=== PATIENT | male | born 1965 | race African-American/Black ===

== ENCOUNTER 2020-04-27 17:00 | Inpatient (IN) | payer BC ==
[2020-04-27 17:38] VITALS: BMI 25.8
[2020-04-27 18:31] LABS: BASO % 0.8 % (0-2.0); EOS % 1.3 % (0-4.5); HEMATOCRIT 21.7 % (35.4-49); HEMOGLOBIN 7.2 GM/dL (11.7-16.9); LYMPH % 23.2 % (8-40); MCH 27.9 pg (25.7-33.7); MCHC 33.2 g/dl (32.0-35.9); MEAN PLT VOLUME 8.7 fl (7.5-11.1); NEUT % 63.7 % (42.8-82.8); PLATELET COUNT 228 K/MM3 (134-434); RBC 2.59 M/mm3 (4.00-5.60); RDW 13.1 % (11.9-15.9); WHITE BLOOD COUNT 6.4 K/mm3 (4.0-10.0)
[2020-04-27 18:35] LABS: INR 1.04 (0.83-1.09); PROTHROMBIN TIME (PATIENT) 12.8 SEC (9.7-13.0)
[2020-04-27 18:38] LABS: ACTIVATED PTT 24.8 SECONDS (25.2-36.5)
[2020-04-27] MEDS ORDERED: DOCUSATE SODIUM 100 MG CAPSULE (FP) PO ONE ×2 (18:39→18:44)
[2020-04-27 18:53] LABS: POTASSIUM 5.3 mmol/L (3.5-5.1)
[2020-04-27 18:55] LABS: CALCIUM 8.1 mg/dL (8.5-10.1)
[2020-04-27 18:56] LABS: ALBUMIN 2.9 g/dl (3.4-5.0); BLOOD UREA NITROGEN 61.9 mg/dL (7-18)
[2020-04-27 18:59] LABS: PHOSPHOROUS 5.3 mg/dL (2.5-4.9)
[2020-04-27 19:00] LABS: BILIRUBIN,TOTAL 0.2 mg/dL (0.2-1); TOT PROT 6.5 g/dl (6.4-8.2)
[2020-04-27 19:19] LABS: CREATININE 9.6 mg/dL (0.55-1.3)
[2020-04-28] MEDS: SEVELAMER CARBONATE 800 MG TAB (FP) PO SCH ×4 (00:53→18:03)
[2020-04-28] MEDS ORDERED: HEPARIN NA (PORCINE) 5,000 UNITS/ML 1ML VIAL ONE (07:18)
[2020-04-28] MEDS ORDERED: SODIUM CHLORIDE 250 ML IV PRN (07:20)
[2020-04-28] MEDS: HEPARIN NA (PORCINE) 5,000 UNITS/ML 1ML VIAL SQ SCH ×3 (07:20→22:22)
[2020-04-28] MEDS ORDERED: IRON SUCROSE INJECTION 100 MG in SODIUM CHLORIDE 95 ML IVPB ONE (08:00)
[2020-04-28] MEDS ORDERED: EPOETIN ALFA 20,000 UNIT/1 ML VIAL SQ ONE (08:00)
[2020-04-28 08:53] LABS: HEMATOCRIT 20.4 % (35.4-49); MCH 28.5 pg (25.7-33.7); MCHC 34.3 g/dl (32.0-35.9); MEAN CELL VOLUME 83.2 fl (80-96); MEAN PLT VOLUME 9.6 fl (7.5-11.1); PLATELET COUNT 221 K/MM3 (134-434); RBC 2.45 M/mm3 (4.00-5.60); RDW 13.1 % (11.9-15.9)
[2020-04-28 09:02] LABS: INR 1.02 (0.83-1.09); PROTHROMBIN TIME (PATIENT) 12.3 SEC (9.7-13.0)
[2020-04-28 09:05] LABS: ACTIVATED PTT 30.5 SECONDS (25.2-36.5)
[2020-04-28 09:10] LABS: POTASSIUM 4.7 mmol/L (3.5-5.1)
[2020-04-28 09:12] LABS: BLOOD UREA NITROGEN 72.8 mg/dL (7-18); CALCIUM 7.9 mg/dL (8.5-10.1)
[2020-04-28 09:15] LABS: PHOSPHOROUS 5.4 mg/dL (2.5-4.9)
[2020-04-28] MEDS: CARVEDILOL 25 MG TABLET (FP) PO SCH ×2 (12:52→22:22)
[2020-04-28] MEDS: LISINOPRIL 5 MG TABLET PO SCH (14:22)
[2020-04-28] MEDS: INSULIN SLIDING SCALE (NOVOLOG) 1 VIAL SQ SCH (22:34)
[2020-04-29] MEDS: HEPARIN NA (PORCINE) 5,000 UNITS/ML 1ML VIAL SQ SCH ×3 (06:07→21:55)
[2020-04-29] MEDS: INSULIN SLIDING SCALE (NOVOLOG) 1 VIAL SQ SCH ×4 (07:25→21:56)
[2020-04-29] MEDS: SEVELAMER CARBONATE 800 MG TAB (FP) PO SCH ×3 (08:32→17:20)
[2020-04-29 08:55] LABS: BASO % 0.6 % (0-2.0); EOS % 1.3 % (0-4.5); LYMPH % 32.4 % (8-40); MCH 27.5 pg (25.7-33.7); MCHC 32.4 g/dl (32.0-35.9); MEAN CELL VOLUME 84.6 fl (80-96); MEAN PLT VOLUME 9.3 fl (7.5-11.1); MONO % 13.8 % (3.8-10.2); NEUT % 51.9 % (42.8-82.8); PLATELET COUNT 237 K/MM3 (134-434); RBC 2.48 M/mm3 (4.00-5.60); RDW 13.3 % (11.9-15.9); WHITE BLOOD COUNT 6.4 K/mm3 (4.0-10.0)
[2020-04-29 09:09] LABS: HEMOGLOBIN 6.8 GM/dL (11.7-16.9)
[2020-04-29 09:41] LABS: PHOSPHOROUS 4.3 mg/dL (2.5-4.9)
[2020-04-29 09:42] LABS: BILIRUBIN,TOTAL 0.4 mg/dL (0.2-1); TOT PROT 5.9 g/dl (6.4-8.2)
[2020-04-29 09:44] LABS: ALBUMIN 2.7 g/dl (3.4-5.0)
[2020-04-29 09:50] LABS: CALCIUM 8.3 mg/dL (8.5-10.1)
[2020-04-29 09:54] LABS: BLOOD UREA NITROGEN 41.1 mg/dL (7-18)
[2020-04-29] MEDS: FUROSEMIDE 40 MG TABLET (FP) PO SCH (11:08)
[2020-04-29] MEDS: CARVEDILOL 25 MG TABLET (FP) PO SCH ×2 (11:08→21:55)
[2020-04-29] MEDS: LISINOPRIL 5 MG TABLET PO SCH (13:38)
[2020-04-29 23:48] LABS: BASO % 0.7 % (0-2.0); EOS % 1.2 % (0-4.5); HEMATOCRIT 24.3 % (35.4-49); HEMOGLOBIN 8.1 GM/dL (11.7-16.9); LYMPH % 32.3 % (8-40); MCH 28.4 pg (25.7-33.7); MCHC 33.3 g/dl (32.0-35.9); MEAN CELL VOLUME 85.2 fl (80-96); MEAN PLT VOLUME 9.6 fl (7.5-11.1); MONO % 11.4 % (3.8-10.2); NEUT % 54.4 % (42.8-82.8); PLATELET COUNT 215 K/MM3 (134-434); RBC 2.85 M/mm3 (4.00-5.60); RDW 13.3 % (11.9-15.9); WHITE BLOOD COUNT 7.9 K/mm3 (4.0-10.0)
[2020-04-30] MEDS: HEPARIN NA (PORCINE) 5,000 UNITS/ML 1ML VIAL SQ SCH ×3 (06:04→21:31)
[2020-04-30] MEDS: INSULIN SLIDING SCALE (NOVOLOG) 1 VIAL SQ SCH ×4 (06:52→21:29)
[2020-04-30 09:24] LABS: BASO % 0.4 % (0-2.0); EOS % 1.2 % (0-4.5); HEMATOCRIT 25.1 % (35.4-49); HEMOGLOBIN 8.3 GM/dL (11.7-16.9); LYMPH % 26.3 % (8-40); MCH 27.8 pg (25.7-33.7); MEAN CELL VOLUME 84.3 fl (80-96); MEAN PLT VOLUME 9.4 fl (7.5-11.1); MONO % 11.6 % (3.8-10.2); NEUT % 60.5 % (42.8-82.8); PLATELET COUNT 228 K/MM3 (134-434); RBC 2.97 M/mm3 (4.00-5.60); RDW 13.3 % (11.9-15.9); WHITE BLOOD COUNT 8.7 K/mm3 (4.0-10.0)
[2020-04-30 09:47] LABS: POTASSIUM 5.6 mmol/L (3.5-5.1)
[2020-04-30] MEDS: SEVELAMER CARBONATE 800 MG TAB (FP) PO SCH ×3 (09:55→18:08)
[2020-04-30 09:56] LABS: ALBUMIN 2.8 g/dl (3.4-5.0); CALCIUM 8.5 mg/dL (8.5-10.1)
[2020-04-30 09:57] LABS: BLOOD UREA NITROGEN 58.5 mg/dL (7-18)
[2020-04-30 10:00] LABS: BILIRUBIN,TOTAL 0.5 mg/dL (0.2-1); PHOSPHOROUS 4.7 mg/dL (2.5-4.9)
[2020-04-30 10:01] LABS: TOT PROT 6.1 g/dl (6.4-8.2)
[2020-04-30 10:07] LABS: CREATININE 8.2 mg/dL (0.55-1.3)
[2020-04-30] MEDS ORDERED: SODIUM CHLORIDE 250 ML IV PRN (12:32)
[2020-04-30] MEDS ORDERED: EPOETIN ALFA 20,000 UNIT/1 ML VIAL SQ ONE (13:00)
[2020-04-30] MEDS ORDERED: IRON SUCROSE INJECTION 100 MG in SODIUM CHLORIDE 95 ML IVPB ONE (13:00)
[2020-04-30] MEDS: CARVEDILOL 25 MG TABLET (FP) PO SCH ×2 (15:10→21:31)
[2020-04-30] MEDS: LISINOPRIL 5 MG TABLET PO SCH (15:10)
[2020-04-30] MEDS: FUROSEMIDE 40 MG TABLET (FP) PO SCH (15:10)
[2020-05-01] MEDS: HEPARIN NA (PORCINE) 5,000 UNITS/ML 1ML VIAL SQ SCH ×3 (06:25→21:08)
[2020-05-01] MEDS: INSULIN SLIDING SCALE (NOVOLOG) 1 VIAL SQ SCH ×4 (06:25→21:08)
[2020-05-01 08:38] LABS: BASO % 0.4 % (0-2.0); EOS % 0.4 % (0-4.5); HEMATOCRIT 28.8 % (35.4-49); HEMOGLOBIN 9.3 GM/dL (11.7-16.9); LYMPH % 23.4 % (8-40); MCH 27.6 pg (25.7-33.7); MCHC 32.3 g/dl (32.0-35.9); MEAN CELL VOLUME 85.7 fl (80-96); MEAN PLT VOLUME 9.3 fl (7.5-11.1); MONO % 12.3 % (3.8-10.2); NEUT % 63.5 % (42.8-82.8); PLATELET COUNT 268 K/MM3 (134-434); RBC 3.36 M/mm3 (4.00-5.60); RDW 13.5 % (11.9-15.9); WHITE BLOOD COUNT 9.3 K/mm3 (4.0-10.0)
[2020-05-01 08:56] LABS: POTASSIUM 4.9 mmol/L (3.5-5.1)
[2020-05-01 09:03] LABS: ALBUMIN 2.9 g/dl (3.4-5.0); CALCIUM 8.5 mg/dL (8.5-10.1)
[2020-05-01 09:06] LABS: PHOSPHOROUS 4.2 mg/dL (2.5-4.9)
[2020-05-01 09:07] LABS: MAGNESIUM 1.8 mg/dL (1.8-2.4)
[2020-05-01 09:08] LABS: TOT PROT 6.6 g/dl (6.4-8.2)
[2020-05-01 09:17] LABS: BILIRUBIN,TOTAL 0.4 mg/dL (0.2-1)
[2020-05-01 09:18] LABS: BLOOD UREA NITROGEN 31.3 mg/dL (7-18)
[2020-05-01] MEDS: SEVELAMER CARBONATE 800 MG TAB (FP) PO SCH ×3 (10:00→17:10)
[2020-05-01] MEDS: LISINOPRIL 5 MG TABLET PO SCH (10:34)
[2020-05-01] MEDS: CARVEDILOL 25 MG TABLET (FP) PO SCH ×2 (10:35→21:08)
[2020-05-01] MEDS: FUROSEMIDE 40 MG TABLET (FP) PO SCH (10:35)
[2020-05-01] MEDS ORDERED: MAGNESIUM SULF 50% (8.12 MEQ/2 ML-1 GM VIAL) IVPB ONE (16:30)
[2020-05-01] MEDS ORDERED: MAGNESIUM SULF 50% (8.12 MEQ/2 ML-1 GM VIAL) ONE (17:37)
[2020-05-02] MEDS: INSULIN SLIDING SCALE (NOVOLOG) 1 VIAL SQ SCH ×3 (06:29→18:19)
[2020-05-02] MEDS: HEPARIN NA (PORCINE) 5,000 UNITS/ML 1ML VIAL SQ SCH ×2 (06:29→13:20)
[2020-05-02] MEDS: SEVELAMER CARBONATE 800 MG TAB (FP) PO SCH ×3 (07:58→18:19)
[2020-05-02 09:23] LABS: BASO % 0.5 % (0-2.0); HEMATOCRIT 28.3 % (35.4-49); HEMOGLOBIN 9.2 GM/dL (11.7-16.9); LYMPH % 26.1 % (8-40); MCHC 32.5 g/dl (32.0-35.9); MEAN PLT VOLUME 9.3 fl (7.5-11.1); MONO % 12.7 % (3.8-10.2); NEUT % 59.7 % (42.8-82.8); PLATELET COUNT 295 K/MM3 (134-434); RBC 3.28 M/mm3 (4.00-5.60); RDW 13.3 % (11.9-15.9); WHITE BLOOD COUNT 9.3 K/mm3 (4.0-10.0)
[2020-05-02 09:33] LABS: POTASSIUM 5.1 mmol/L (3.5-5.1)
[2020-05-02 09:36] LABS: ALBUMIN 3.1 g/dl (3.4-5.0); BLOOD UREA NITROGEN 48.4 mg/dL (7-18); CALCIUM 9.1 mg/dL (8.5-10.1); MAGNESIUM 2.2 mg/dL (1.8-2.4)
[2020-05-02 09:40] LABS: PHOSPHOROUS 4.8 mg/dL (2.5-4.9)
[2020-05-02 09:41] LABS: BILIRUBIN,TOTAL 0.4 mg/dL (0.2-1); TOT PROT 6.6 g/dl (6.4-8.2)
[2020-05-02] MEDS: LISINOPRIL 5 MG TABLET PO SCH (10:12)
[2020-05-02] MEDS: CARVEDILOL 25 MG TABLET (FP) PO SCH (10:14)
[2020-05-02 12:49] LABS: CREATININE 8.3 mg/dL (0.55-1.3)
[2020-05-02] MEDS ORDERED: SODIUM CHLORIDE 250 ML IV PRN (14:14)
[2020-05-02] MEDS ORDERED: EPOETIN ALFA-EPBX 10,000 UNIT/ML VIAL IVPUSH ONE (15:30)
[2020-05-02 18:00] VITALS: BP 189/94; PULSE 87; TEMP 98.5
[2020-05-02] MEDS ORDERED: NIFEdipine E.R. 90 MG TABLET PO SCH (18:15)
== END 2020-05-02 19:15 | disposition home or self-care (01) | DRG 682 ==
LOC: JER 17:00 → JERBED 19:10 → J6WEST-2 04-28 11:40
PROVIDERS: ADMIT Internal Medicine; ATTEND Internal Medicine
PROC: 5A1D70Z Performance of Urinary Filtration, Intermittent, Less than 6 Hours Per Day (ICD-10-PCS; principal; 2020-04-28)
PROC: 30233N1 Transfusion of Nonautologous Red Blood Cells into Peripheral Vein, Percutaneous Approach (ICD-10-PCS; 2020-04-29)
DX: I12.0 Hypertensive chronic kidney disease with stage 5 chronic kidney disease or end stage renal disease (principal); N18.6 End stage renal disease; E87.2 Acidosis; E11.22 Type 2 diabetes mellitus with diabetic chronic kidney disease; Z79.84 Long term (current) use of oral hypoglycemic drugs; E88.09 Other disorders of plasma-protein metabolism, not elsewhere classified; E11.65 Type 2 diabetes mellitus with hyperglycemia; M10.9 Gout, unspecified; D63.1 Anemia in chronic kidney disease; Z91.19 Patient's noncompliance with other medical treatment and regimen; N25.0 Renal osteodystrophy; I51.7 Cardiomegaly
CPT/HCPCS: 36415; 36430; 71045-TC-FY; 80048; 80053; 82728; 82962; 83540; 83550; 83735; 83970; 84100; 85025; 85027; 85610; 85730; 86480; 86803; 86850; 86900; 86901; 86922; 87340; 93005; 93010; 99285-25; C9803; J0885; J1644; J1756; P9058; Q5106; U0003